=== PATIENT | male | born 1990 | race Two or more races ===

== ENCOUNTER 2024-03-05 05:35 | Emergency (ER) | payer OTHER, SELFPAY ==
[2024-03-05 05:35] VITALS: BMI 35.5
[2024-03-05 06:51] VITALS: BP 149/83; PULSE 75; RESP 19; TEMP 36.9; O2SAT 97
--- NOTE | 2024-03-05 07:10 | PD.EDURI ---
Upper Respiratory Inf. RME/HPI General Chief Complaint: Upper Respiratory Infection Stated Complaint: COUGH, SOB Time Seen by Provider: 03/05/24 07:06 Arrival date/time: 03/05/24 05:35 RME / HPI RME / HPI Narrative: 33-year-old patient presents emergency department with complaint of cough and shortness of breath for the past 1 week patient states that he was exposed to influenza a week ago. He denies tobacco use. Pain is worse with deep inspiration. He attests to a history of asthma but states that this feels different. Related Data Home Medications ?Medication ?Instructions ?Recorded ?Confirmed glimepiride 4 mg tablet 4 mg PO QAM 07/17/17 07/17/17 sitagliptin phosphate 100 mg 100 mg PO QDAY 07/17/17 07/17/17 tablet (Januvia) Previous Rx's ?Medication ?Instructions ?Recorded omeprazole 20 mg capsule,delayed 20 mg PO QDAY #30 caps 07/17/17 release acetaminophen 325 mg capsule 975 mg (3 x 325 mg) PO Q6H PRN 09/21/19 pain #30 caps azithromycin 250 mg tablet See Rx Instructions PO .COMPLEX #6 09/21/19 tabs amoxicillin 875 mg-potassium 1 tab PO Q12H #14 tabs 08/23/22 clavulanate 125 mg tablet ibuprofen 800 mg tablet 800 mg PO Q8H PRN pain #30 tabs 08/23/22 amoxicillin 500 mg capsule 500 mg PO TID #30 caps 05/25/23 hydrocodone 5 mg-acetaminophen 325 1 tab PO Q6H PRN pain #30 tabs 05/25/23 mg tablet amoxicillin 875 mg-potassium 1 tab PO Q12H #14 tabs 06/01/23 clavulanate 125 mg tablet hydrocodone 5 mg-acetaminophen 325 1 tab PO Q8H PRN pain #10 tabs 06/01/23 mg tablet azithromycin 250 mg tablet See Rx Instructions PO .COMPLEX #6 03/05/24 tabs benzonatate 200 mg capsule 200 mg PO BID PRN cough #20 caps 03/05/24 Allergies Allergy/AdvReac Type Severity Reaction Status Date / Time No Known Allergies Allergy Verified 03/05/24 05:37 Review of Systems Review of Systems Systems Reviewed: All systems reviewed, normal except as documented Constitutional Constitutional: Reports system reviewed and no additional complaints, except as documented Cardiovascular Cardiovascular: Reports system reviewed and no additional complaints, except as documented Respiratory Respiratory: Reports system reviewed and no additional complaints, except as documented Musculoskeletal Musculoskeletal: Reports system reviewed and no additional complaints, except as documented ED Exam General General appearance: Present alert and in no apparent distress Head Head exam: Present atraumatic and normocephalic ENT ENT exam: Present normal exam and normal oropharynx Chest Chest inspection: Present normal inspection and symmetric chest wall rise Respiratory Respiratory exam: Present wheezes; Absent respiratory distress, accessory muscle use or prolonged expiratory phase Cardiovascular Cardiovascular exam: Present regular rate and normal rhythm Abdominal Exam Abdominal exam: Present soft Neurological Exam Neurological exam: Present alert and oriented X3 Psychiatric Psychiatric exam: Present normal affect and normal mood Course Quality Measures none Orders Category Date Time Status Bedside COVID-19 Antigen Test NOW Care 03/05/24 07:18 Active Bedside Influenza A&B Antigen Test NOW Care 03/05/24 07:18 Completed XR chest 2V Stat Exams 03/05/24 07:18 Completed cefTRIAXone [Rocephin] 1,000 mg Med 03/05/24 08:37 Ordered Lidocaine 1% 20 ml [Xylocaine 1% 20 ML] 1 ml IM X1 Vital Signs Vital signs: Vital Signs Temperature 98.5 F 03/05/24 06:51 Pulse Rate 75 03/05/24 06:51 Respiratory Rate 19 03/05/24 06:51 Blood Pressure 149/83 H 03/05/24 06:51 Pulse Oximetry (%) 97 03/05/24 06:51 Oxygen Delivery Method Room Air 03/05/24 06:51 Upper Respiratory Infection MDM Narrative MDM Narrative:: 33-year-old patient presents emergency department with cough chest x-ray indicates pneumonia patient will be given a dose of IM Rocephin in ED and DC'd home with azithromycin patient is in agreement of the plan patient remained afebrile nontoxic-appearing throughout ED stay. Patient data External records reviewed:: None Clinical information provided by:: patient Social determinants that could affect healthcare access:: none Patient has the following chronic illnesses:: asthma How is presenting disease/condition affected by chronic disease/condition?: exacerbated by Evaluation data The following diagnostics were reviewed and interpreted by me:: radiology exam(s) Lab and/or radiology exams considered but not ordered:: Radiology exam considered and ordered Interpretation Summary: Chest x-ray indicates pneumonia Medications / Prescriptions Medications or Prescriptions considered but not ordered:: both considerd and ordered Medication administrations:: per above Consultations Consultation(s) initiated? (list below): No Diagnosis Upper Respiratory Differential Diagnosis: upper respiratory infection, croup and bronchitis Most likely diagnosis given after review of the tests above:: PNA Admission Indicated Admission indicated?: not indicated Explain why admission is indicated or not indicated:: na Admission Request Was there a request for admission?: No Disposition Plan Disposition Plan: Discharge Discharge Attestation Discharge Attestation: The patient and all family members were given an opportunity to ask questions and understood the discharge instructions. Discharge instructions specifically effects, indications for sooner follow up or return to the emergency department, and the expected course of current diagnosis. Patient condition: Stable Discharge Plan Plan Patient Disposition: HOME (Self Care) Prescriptions/Referrals Prescriptions/Med Rec: New azithromycin 250 mg tablet See Rx Instructions .ROUTE .COMPLEX Qty: 6 0RF Rx Instructions: For 250 mg dose pack: take 500 mg today (day 1), then 250 mg for 4 days (days 2-5) benzonatate 200 mg capsule 200 mg PO BID PRN (Reason: cough) Qty: 20 0RF No Action glimepiride 4 mg Tablet 4 mg PO QAM sitagliptin phosphate [Januvia] 100 mg Tablet 100 mg PO QDAY omeprazole 20 mg capsule,delayed release(DR/EC) 20 mg PO QDAY Qty: 30 0RF Rx Instructions: may open cap/sprinkle on applesauce;do not chew acetaminophen 325 mg capsule 975 mg PO Q6H PRN (Reason: pain) Qty: 30 0RF azithromycin 250 mg tablet See Rx Instructions .ROUTE .COMPLEX Qty: 6 0RF Rx Instructions: take 500 mg today (day 1), then 250 mg for 4 days (days 2-5) amoxicillin 500 mg capsule 500 mg PO TID Qty: 30 0RF hydrocodone-acetaminophen 5-325 mg tablet 1 tab PO Q6H MDD 8 PRN (Reason: pain) Qty: 30 0RF amoxicillin-pot clavulanate 875-125 mg tablet 1 tab PO Q12H Qty: 14 0RF hydrocodone-acetaminophen 5-325 mg tablet 1 tab PO Q8H MDD 3 tabs per day PRN (Reason: pain) Qty: 10 0RF ibuprofen 800 mg tablet 800 mg PO Q8H PRN (Reason: pain) Qty: 30 0RF amoxicillin-pot clavulanate 875-125 mg tablet 1 tab PO Q12H Qty: 14 0RF Referrals: No Primary/Family,Physician [Primary Care Provider] - In 1 week Problem List Clinical Impression: Pneumonia Patient/Caregiver Discharge Instructions Education Materials: ED Pneumonia (Adult) Print Language: Georgian Stand Alone Forms: [facility] Award Info., Patient Portal Info Letter
--- NOTE | 2024-03-05 07:18 | XR_ITS ---
Examination: PA lateral chest 2 views Technique: Upright PA lateral chest 2 views Exam date 9: March 05, 2024 0732 hrs. Comparison May 25, 2023 Indications: Coughing shortness of breath beginning one week ago. Findings: Minimal opacity in the left upper lobe Right lung clear Normal heart size Impression: Suspicious for early pneumonia in the left upper lobe
[2024-03-05] MEDS: CEFTRIAXONE 1000 MG IM (09:16)
[2024-03-05] MEDS: LIDOCAINE 1% IM (09:16)
== END 2024-03-05 09:20 | disposition home or self-care (01) ==
PROVIDERS: Emergency Provider Emergency Medicine
DX: J18.9 Pneumonia, unspecified organism (principal)
CPT/HCPCS: 71046; 87400; 87811; 96372; 99283; J0696; J3490